=== PATIENT | male | born 1980 | race Caucasian/White ===

== ENCOUNTER 2017-08-09 13:09 | Inpatient (IN) | payer MEDICAID, SELFPAY ==
[2017-08-09 13:28] VITALS: BP 134/84; PULSE 102; RESP 18; TEMP 36.6; O2SAT 98; BMI 38.8
[2017-08-09 14:52] LABS: Basophils % 0.3 % (0.1-2.0); Eosinophils # 0.2 K/mm3 (0.0-0.4); Eosinophils % 2.3 % (0.1-12.0); Hematocrit 43.5 % (42.0-52.0); Hemoglobin 14.1 g/dL (14.1-18.0); Lymphocytes # 2.4 K/mm3 (0.7-4.5); Mean Corpuscular HGB Conc 32.4 g/dL (31.8-35.4); Mean Corpuscular Hemoglobin 28.3 pg (27.0-31.2); Mean Corpuscular Volume 87.3 fl (80-94); Mean Platelet Volume 8.7 fl (7.4-10.4); Monocytes # 0.6 K/mm3 (0.1-1.0); Monocytes % 6.2 % (1.7-9.3); Neutrophils # 7.1 K/mm3 (1.8-7.8); Neutrophils % 68.2 % (37.0-80.0); Platelet Count 238 K/mm3 (142-424); Red Blood Count 4.98 M/mm3 (4.60-6.20); White Blood Count 10.3 K/mm3 (4.8-10.8)
--- NOTE | 2017-08-09 15:37 | PC.NURSE ---
at 1347 Samuel Linton was notified that pt last use of heroin was around 15 hours prior to admission and states he will withdraw. [facility] stated that he told them it had been 2 weeks ago. Pt stated to me that it had been 2 weeks since he used a needle to administer the heroin but since this area of concern had developed he was snorting the heroin up his nose. Will continue to monitor
--- NOTE | 2017-08-09 15:51 | HMH.GSCON ---
*Admission Date: 08/09/17 *Chief complaint: abscess *History of present illness: 36yo male seen in consultation from Samuel Linton APRN and Dr. Luna for evaluation of a right AC fossa abscess. He admits to [facility] and developed a small right AC fossa abscess about a week ago . Over the last 24 hours, he states that the area has swollen up and got more tender . No fevers. No drainage. Review of Systems - Constitutional Denies anorexia - Eyes Denies change in vision - *Respiratory Denies cough - *Gastrointestinal Denies abdominal pain - *Musculoskeletal Denies joint pain - *Neurologic Denies confusion - Hematologic/Lymphatic Denies easy bleeding H History Medical History: Reports:: Anxiety, Depression Denies:: Diabetes Mellitus Type 1, Diabetes Mellitus Type 2 Other Surgeries: Yes: Other (gallbladder) Amputation: No Fractures: Yes - *Social History Educational Level: Completed Graduate School Smoking Status: Current every day smoker Tobacco Type: smokeless tobacco Alcohol Intake: never Substance Use Type: crack/cocaine, heroin Last Used Substance: hours (ago) Occupational Status: employed - Psychiatric History Expresses thoughts of harming self/others: None Suicide Plan Description: No Plan Pschychiatric History:: Reports:: Anxiety, Depression Meds Home Medications Medication Instructions Recorded Confirmed Type No Known Home Medications [No 08/09/17 08/09/17 History Known Home Medications] Allergies Allergy/AdvReac Type Severity Reaction Status Date / Time No Known Allergies Allergy Verified 08/09/17 11:47 Exam Vital signs and Labs for Last 24 Hours: Temp Pulse Resp BP Pulse Ox 97.8 F 102 H 18 134/84 98 08/09/17 13:28 08/09/17 13:28 08/09/17 13:28 08/09/17 13:28 08/09/17 13:28 Laboratory Results - last 24 hr 08/09/17 14:00: WBC 10.3, RBC 4.98, Hgb 14.1, Hct 43.5, MCV 87.3, MCH 28.3, MCHC 32.4, RDW 13.0, Plt Count 238, MPV 8.7, Neut % (Auto) 68.2, Lymph % (Auto) 23.0, [place] % (Auto) 6.2, Eos % (Auto) 2.3, Baso % (Auto) 0.3, Neut # (Auto) 7.1, Lymph # (Auto) 2.4, [place] # (Auto) 0.6, Eos # (Auto) 0.2, Baso # (Auto) 0.0 I & O for Last 24 hours: Intake & Output 08/07/17 08/08/17 08/09/17 08/10/17 11:59 11:59 11:59 11:59 Weight 278 lb - Constitutional no acute distress - *Routine Respiratory Exam Absent: respiratory distress - *Routine Cardiovascular Exam Present: RRR - *Routine Abdominal Exam Present: soft - *Routine Skin Exam Comments: Right AC fossa abscess with mild cellulitis - Routine Psychiatric Exam Present: normal affect Results - Labs 08/09/17 14:00 Laboratory Results - last 24 hr 08/09/17 14:00: WBC 10.3, RBC 4.98, Hgb 14.1, Hct 43.5, MCV 87.3, MCH 28.3, MCHC 32.4, RDW 13.0, Plt Count 238, MPV 8.7, Neut % (Auto) 68.2, Lymph % (Auto) 23.0, [place] % (Auto) 6.2, Eos % (Auto) 2.3, Baso % (Auto) 0.3, Neut # (Auto) 7.1, Lymph # (Auto) 2.4, [place] # (Auto) 0.6, Eos # (Auto) 0.2, Baso # (Auto) 0.0 Assessment and Plan (1) Abscess of right arm Current visit: Yes Status: Acute Category: Surgical Code(s): L02.413 - Cutaneous abscess of right upper limb Antibiotics as per primary service NPO p MN for OR tomorrow I&D right AC fossa abscess -- I have discussed the risks and benefits and he agrees to proceed
--- NOTE | 2017-08-09 15:54 | P.CONS_ITS ---
*Admission Date: 08/09/17 *Chief complaint: abscess *History of present illness: 36yo male seen in consultation from Samuel Linton APRN and Dr. Luna for evaluation of a right AC fossa abscess. He admits to [facility] and developed a small right AC fossa abscess about a week ago . Over the last 24 hours, he states that the area has swollen up and got more tender . No fevers. No drainage. Review of Systems - Constitutional Denies anorexia - Eyes Denies change in vision - *Respiratory Denies cough - *Gastrointestinal Denies abdominal pain - *Musculoskeletal Denies joint pain - *Neurologic Denies confusion - Hematologic/Lymphatic Denies easy bleeding H History Medical History: Reports:: Anxiety, Depression Denies:: Diabetes Mellitus Type 1, Diabetes Mellitus Type 2 Other Surgeries: Yes: Other (gallbladder) Amputation: No Fractures: Yes - *Social History Educational Level: Completed Graduate School Smoking Status: Current every day smoker Tobacco Type: smokeless tobacco Alcohol Intake: never Substance Use Type: crack/cocaine, heroin Last Used Substance: hours (ago) Occupational Status: employed - Psychiatric History Expresses thoughts of harming self/others: None Suicide Plan Description: No Plan Pschychiatric History:: Reports:: Anxiety, Depression Meds Home Medications Medication Instructions Recorded Confirmed Type No Known Home Medications [No 08/09/17 08/09/17 History Known Home Medications] Allergies Allergy/AdvReac Type Severity Reaction Status Date / Time No Known Allergies Allergy Verified 08/09/17 11:47 Exam Vital signs and Labs for Last 24 Hours: Temp Pulse Resp BP Pulse Ox 97.8 F 102 H 18 134/84 98 08/09/17 13:28 08/09/17 13:28 08/09/17 13:28 08/09/17 13:28 08/09/17 13:28 Laboratory Results - last 24 hr 08/09/17 14:00: WBC 10.3, RBC 4.98, Hgb 14.1, Hct 43.5, MCV 87.3, MCH 28.3, MCHC 32.4, RDW 13.0, Plt Count 238, MPV 8.7, Neut % (Auto) 68.2, Lymph % (Auto) 23.0, [place] % (Auto) 6.2, Eos % (Auto) 2.3, Baso % (Auto) 0.3, Neut # (Auto) 7.1 , Lymph # (Auto) 2.4, [place] # (Auto) 0.6, Eos # (Auto) 0.2, Baso # (Auto) 0.0 I & O for Last 24 hours: Intake & Output 08/07/17 08/08/17 08/09/17 08/10/17 11:59 11:59 11:59 11:59 Weight 278 lb - Constitutional no acute distress - *Routine Respiratory Exam Absent: respiratory distress - *Routine Cardiovascular Exam Present: RRR - *Routine Abdominal Exam Present: soft - *Routine Skin Exam Comments: Right AC fossa abscess with mild cellulitis - Routine Psychiatric Exam Present: normal affect Results - Labs 08/09/17 14:00 Laboratory Results - last 24 hr 08/09/17 14:00: WBC 10.3, RBC 4.98, Hgb 14.1, Hct 43.5, MCV 87.3, MCH 28.3, MCHC 32.4, RDW 13.0, Plt Count 238, MPV 8.7, Neut % (Auto) 68.2, Lymph % (Auto) 23.0, [place] % (Auto) 6.2, Eos % (Auto) 2.3, Baso % (Auto) 0.3, Neut # (Auto) 7.1 , Lymph # (Auto) 2.4, [place] # (Auto) 0.6, Eos # (Auto) 0.2, Baso # (Auto) 0.0 Assessment and Plan (1) Abscess of right arm Current visit: Yes Status: Acute Category: Surgical Code(s): L02.413 - Cutaneous abscess of right upper limb Antibiotics as per primary service NPO p MN for OR tomorrow I&D right AC bubba
[2017-08-09 16:01] VITALS: BP 143/73; PULSE 91; RESP 18; TEMP 37.2; O2SAT 99
--- NOTE | 2017-08-09 16:10 | P.CONPHA_ITS ---
- Pharmacy Consult Date: 08/09/17 Time: 16:08 Referring provider: DR. PRATER Reason for Consult:: VANCOMYCIN DOSING Allergies and ADEs:: Allergies Allergy/AdvReac Type Severity Reaction Status Date / Time No Known Allergies Allergy Verified 08/09/17 11:47 Home Medications:: Home Medications Medication Instructions Recorded Confirmed Type No Known Home Medications [No 08/09/17 08/09/17 History Known Home Medications] Height: 1.8 m Weight: 126.099 kg Laboratory Results:: Laboratory Results - last 24 hr 08/09/17 14:00: WBC 10.3, RBC 4.98, Hgb 14.1, Hct 43.5, MCV 87.3, MCH 28.3, MCHC 32.4, RDW 13.0, Plt Count 238, MPV 8.7, Neut % (Auto) 68.2, Lymph % (Auto) 23.0, [place] % (Auto) 6.2, Eos % (Auto) 2.3, Baso % (Auto) 0.3, Neut # (Auto) 7.1 , Lymph # (Auto) 2.4, [place] # (Auto) 0.6, Eos # (Auto) 0.2, Baso # (Auto) 0.0 Medical History: Reports:: Anxiety, Depression Denies:: Diabetes Mellitus Type 1, Diabetes Mellitus Type 2 Assessment and Plan (1) Abscess of right arm Current visit: Yes Status: Acute Category: Surgical Code(s): L02.413 - Cutaneous abscess of right upper limb - Assessment and plan all Dx Assessment and Plan for all problems:: BASED ON PATIENT'S FACTORS, RECOMMEND STARTING WITH VANCOMYCIN 2250 MG Q12H AT THIS TIME. PHARMACY WILL FOLLOW DAILY AND ADJUST APPROPRIATE. BAYRON MACHADO, COLIND
[2017-08-09 16:16] LABS: Alanine Aminotransferase 26 U/L (12-78); Albumin Level 3.7 gm/dL (3.4-5.0); Albumin/Globulin Ratio 1.1 (1.1-1.8); Alkaline Phosphatase 77 U/L (46-116); Anion Gap 10.2 mEq/L (5-15); Aspartate Amino Transferase 11 U/L (15-37); Bilirubin,Total 0.4 mg/dL (0.2-1.0); Blood Urea Nitrogen 22 mg/dL (7-18); Calcium 8.6 mg/dL (8.5-10.1); Carbon Dioxide 30 mmol/L (21.0-32.0); Chloride 103 mmol/L (98-107); Cholesterol 136 mg/dL (140-200); Creatinine Clearance Estimated 175 mL/min (0-300); Creatinine,Serum 1.06 mg/dL (0.70-1.30); Estimated Glomerular Filt Rate 80 ml/min (>60); GFR (African American) 97 ML/MIN (>60); Globulin 3.5 gm/dl (1.3-3.2); Glucose 129 mg/dL (74-106); HDL Cholesterol 45 mg/dL (27-67); LDL Cholesterol 71 mg/dL (0-130); Magnesium 2.1 mg/dL (1.4-2.2); Phosphorous 3.6 mg/dL (2.4-4.9); Potassium 4.2 mmoL/L (3.5-5.1); Sodium 139 mmol/L (136-145); Total Protein,Serum 7.2 gm/dL (6.4-8.2); Triglycerides 99 mg/dL (30-200); VLDL Cholesterol 20 mg/dL (0-40)
--- NOTE | 2017-08-09 17:17 | SW/DCPLANNER ---
Received referral regarding drug use for this patient. Went in and spoke with patient this evening. Patient stated that he was going to have an I&D in the am. Patient was very open to discussing his drug use and stated I know tomorrow is going to be bad and I will be going through withdrawals and be extremely sick . Patient also stated that he would rather detox elsewhere than here ( I assume at home to avoid having withdrawals). I encouraged patient to complete his stay here and a hospital is a safe place to be while trying to detox. Patient stated that his drug use first started when he was prescribed pain pills due to femur fracture. Once his prescription for pain pills stopped he became dependent on heroin. Patient stated that he does not typically shoot-up heroin, he generally snorts heroin. Patient stated that he uses heroin up to five times a day, everyday. Patient has been to [facility] in [place], [place] and he has been to [facility] in [place]. Patient stated that he has also tried [facility] in [place], and he would prefer to go this route once ready for discharge. I encouraged patient to be thinking about discharge plans this evening and where he would prefer to go and that I would be back in the morning to discuss discharge plans.Patient does not have any suicidal thoughts.
--- NOTE | 2017-08-09 18:38 | PC.NURSE ---
PT HAS TOLERATED WELL SINCE ARRIVAL, NO COMPLAINTS VOICED TO NURSE. PT IS IN BED, CALL LIGHT WITHIN REACH, WILL CONTINUE TO MONITOR.
[2017-08-09 20:00] VITALS: O2SAT 98
[2017-08-09 20:18] VITALS: BP 115/59; PULSE 94; RESP 18; TEMP 36.7; O2SAT 99
--- NOTE | 2017-08-09 22:07 | PC.NURSE ---
Pt admitted with right antecubital cellulitis, area with edema, erythema and hot to touch. Limb alert in place per policy.
--- NOTE | 2017-08-09 22:29 | PC.NURSE ---
Pt requested reserved pimento cheese sandwich and sprite - already ate his chips x 2.
--- NOTE | 2017-08-09 23:10 | PC.NURSE ---
08/09/17 @ 2015 - R/T pump malfunction as reported during shift report, pt's vancomycin did not get infused until 1999. Phoned YOUSIF Naranjo to report as next dose was scheduled for 2300. Consuelo gave instructions to send [facility] pharmacy a request to have timing changed for next dose at 08/10/17@0600 as needs to be 3every 12 hours. Pharmacy notification was sent and order changed in AUG.
[2017-08-10] VITALS (19 sets, daily range): BP systolic 105–163; BP diastolic 60–82; PULSE 70–105; RESP 16–18; TEMP 36.2–37; O2SAT 94–98
--- NOTE | 2017-08-10 05:15 | PC.NURSE ---
Pt NPO after midnight for upcoming I & D on right antecubital space r/t ivdu. No complaints of pain nor any s/s of withdrawal noted. Pt independent moving about in room/bathroom. IV infusing well with no s/s of infiltration or erythema. Nothing acute to report and pt remained safe and stable during my care.
--- NOTE | 2017-08-10 06:34 | PC.NURSE ---
In to discuss op consent. Went over report with pt initialing and signing. Will continue monitoring.
--- NOTE | 2017-08-10 07:03 | P.PN_ITS ---
Subjective Patient reports: other (The patient states he is concerned regarding withdrawal (I have informed his nurse and she will discuss this with his primary care provider)) Exam Vital signs and Labs for Last 24 Hours: Temp Pulse Resp BP Pulse Ox 97.4 F L 82 16 105/60 96 08/10/17 03:47 08/10/17 03:47 08/10/17 03:47 08/10/17 03:47 08/10/17 03:47 Laboratory Results - last 24 hr 08/09/17 14:00: WBC 10.3, RBC 4.98, Hgb 14.1, Hct 43.5, MCV 87.3, MCH 28.3, MCHC 32.4, RDW 13.0, Plt Count 238, MPV 8.7, Neut % (Auto) 68.2, Lymph % (Auto) 23.0, [place] % (Auto) 6.2, Eos % (Auto) 2.3, Baso % (Auto) 0.3, Neut # (Auto) 7.1 , Lymph # (Auto) 2.4, [place] # (Auto) 0.6, Eos # (Auto) 0.2, Baso # (Auto) 0.0 08/09/17 14:00: Sodium 139, Potassium 4.2, Chloride 103, Carbon Dioxide 30, Anion Gap 10.2, BUN 22 H, Creatinine 1.06, Estimated Creat Clear 175, Estimated GFR 80, Est GFR ( Amer) 97, Glucose 129 H, Calcium 8.6, Phosphorus 3.6, Magnesium 2.1, Total Bilirubin 0.4, AST 11 L, ALT 26, Alkaline Phosphatase 77, Total Protein 7.2, Albumin 3.7, Globulin 3.5 H, Albumin/Globulin Ratio 1.1, Triglycerides 99, Cholesterol 136 L, LDL Cholesterol 71, VLDL Cholesterol 20, HDL Cholesterol 45, Cholesterol/HDL Ratio 3.0 I & O for Last 24 hours: Intake & Output 08/07/17 08/08/17 08/09/17 08/10/17 11:59 11:59 11:59 11:59 Intake Total 1708 / 1708 Output Total 400 / 400 Balance 1308 / 1308 Weight 278 lb - Constitutional no acute distress - *Routine Respiratory Exam Absent: respiratory distress - *Routine Cardiovascular Exam Present: RRR - *Routine Extremities Exam Comments: RUE abscess stable Progress Note: A&P (1) Abscess of right arm Status: Acute Assessment and plan: I&D abscess later today as scheduled. Current Visit: Yes
--- NOTE | 2017-08-10 07:56 | HMH.PHAVTE ---
[facility] Pharmacy VTE Monitoring - Patient Demographics Admission date: 08/09/17 Report Date: 08/10/17 Time: 07:56 Allergies/Adverse Reactions: Patient Allergies No Known Allergies Allergy (Verified 08/09/17 11:47) Height: 1.8 m Weight: 126.099 kg Patient Problems: Current Active Problems Abscess of right arm (Acute) - VTE Risk Labs: VTE Related Lab Results Hgb 14.1 g/dL (14.1-18.0) 08/09/17 14:00 Hct 43.5 % (42.0-52.0) 08/09/17 14:00 Plt Count 238 K/mm3 (142-424) 08/09/17 14:00 BUN 22 mg/dL (7-18) H 08/09/17 14:00 Creatinine 1.06 mg/dL (0.70-1.30) 08/09/17 14:00 Estimated Creat Clear 175 mL/min (0-300) 08/09/17 14:00 VTE Score: 2 VTE Risk Level: Very Low Risk - Prophylaxis VTE Prophylaxis Ordered?: Yes Types of VTE Prophylaxis: TEDS Knee High Location of Applied Device: Bilateral Lower Extremeties - VTE Diagnosis Confirmed Treatment or plan recommended: Continue Current Treatment
--- NOTE | 2017-08-10 09:19 | HMH.HP ---
*Admission Date: 08/09/17 *Chief complaint: abcess *History of present illness: 36yo male seen in consultation from Samuel Linton APRN and Dr. Luna for evaluation of a right AC fossa abscess. He admits to [facility] and developed a small right AC fossa abscess about a week ago . Over the last 24 hours, he states that the area has swollen up and got more tender . No fevers. No drainage. [facility] History I have reviewed the patient's past medical history: Yes Medical History: Reports:: Anxiety, Depression Denies:: Diabetes Mellitus Type 1, Diabetes Mellitus Type 2 Other Surgeries: Yes: Other (gallbladder) Amputation: No Fractures: Yes - *Social History Educational Level: Completed Graduate School Smoking Status: Current every day smoker Tobacco Type: smokeless tobacco Alcohol Intake: never Substance Use Type: crack/cocaine, heroin Last Used Substance: hours (ago) Occupational Status: employed - Psychiatric History Expresses thoughts of harming self/others: None Suicide Plan Description: No Plan Pschychiatric History:: Reports:: Anxiety, Depression Review of Systems - Constitutional Reports chills, Reports fatigue - Eyes Denies double vision - ENT Denies neck pain - *Cardiovascular Denies chest pain with activity - *Respiratory Denies cough, Denies shortness of breath - *Gastrointestinal Denies bright, red blood in stools - *Genitourinary Denies painful urination - *Musculoskeletal Denies decreased muscle mass - Integumentary/Breasts Denies change in hair - *Neurologic Denies confusion - Psychiatric Denies panic attacks - Endocrine Denies flushing - Hematologic/Lymphatic Denies enlarged lymph nodes - Allergic/Immunologic Denies lip swelling Meds Home Medications Medication Instructions Recorded Confirmed Type No Known Home Medications [No 08/09/17 08/09/17 History Known Home Medications] Allergies Allergy/AdvReac Type Severity Reaction Status Date / Time No Known Allergies Allergy Verified 08/09/17 11:47 Exam Vital signs and Labs for Last 24 Hours: Temp Pulse Resp BP Pulse Ox 98.5 F 75 18 118/61 98 08/10/17 07:58 08/10/17 07:58 08/10/17 07:58 08/10/17 07:58 08/10/17 07:58 Laboratory Results - last 24 hr 08/09/17 14:00: WBC 10.3, RBC 4.98, Hgb 14.1, Hct 43.5, MCV 87.3, MCH 28.3, MCHC 32.4, RDW 13.0, Plt Count 238, MPV 8.7, Neut % (Auto) 68.2, Lymph % (Auto) 23.0, [place] % (Auto) 6.2, Eos % (Auto) 2.3, Baso % (Auto) 0.3, Neut # (Auto) 7.1, Lymph # (Auto) 2.4, [place] # (Auto) 0.6, Eos # (Auto) 0.2, Baso # (Auto) 0.0 08/09/17 14:00: Sodium 139, Potassium 4.2, Chloride 103, Carbon Dioxide 30, Anion Gap 10.2, BUN 22 H, Creatinine 1.06, Estimated Creat Clear 175, Estimated GFR 80, Est GFR ( Amer) 97, Glucose 129 H, Calcium 8.6, Phosphorus 3.6, Magnesium 2.1, Total Bilirubin 0.4, AST 11 L, ALT 26, Alkaline Phosphatase 77, Total Protein 7.2, Albumin 3.7, Globulin 3.5 H, Albumin/Globulin Ratio 1.1, Triglycerides 99, Cholesterol 136 L, LDL Cholesterol 71, VLDL Cholesterol 20, HDL Cholesterol 45, Cholesterol/HDL Ratio 3.0 I & O for Last 24 hours: Intake & Output 08/07/17 08/08/17 08/09/17 08/10/17 11:59 11:59 11:59 11:59 Intake Total 1708 / 1708 Output Total 400 / 400 Balance 1308 / 1308 Weight 278 lb - Constitutional no acute distress - *Routine HEENT Exam Head: Present: normocephalic Eye: Present: PERRL ENT: Present: mucous membranes moist - *Routine Neck Exam Present: supple, full ROM - *Routine Respiratory Exam Present: CTA bilaterally - *Routine Cardiovascular Exam Present: murmur - *Routine Abdominal Exam Present: soft, normoactive bowel sounds - *Routine Extremities Exam Present: full ROM - *Routine Skin Exam Present: erythema - *Routine Neurological Exam Present: alert, oriented X3, CN II-XII intact - Routine Psychiatric Exam Present: normal affect, normal thought process - Detaile
--- NOTE | 2017-08-10 09:22 | P.HP_ITS ---
*Admission Date: 08/09/17 *Chief complaint: abcess *History of present illness: 36yo male seen in consultation from Samuel Linton APRN and Dr. Luna for evaluation of a right AC fossa abscess. He admits to [facility] and developed a small right AC fossa abscess about a week ago . Over the last 24 hours, he states that the area has swollen up and got more tender . No fevers. No drainage. [facility] History I have reviewed the patient's past medical history: Yes Medical History: Reports:: Anxiety, Depression Denies:: Diabetes Mellitus Type 1, Diabetes Mellitus Type 2 Other Surgeries: Yes: Other (gallbladder) Amputation: No Fractures: Yes - *Social History Educational Level: Completed Graduate School Smoking Status: Current every day smoker Tobacco Type: smokeless tobacco Alcohol Intake: never Substance Use Type: crack/cocaine, heroin Last Used Substance: hours (ago) Occupational Status: employed - Psychiatric History Expresses thoughts of harming self/others: None Suicide Plan Description: No Plan Pschychiatric History:: Reports:: Anxiety, Depression Review of Systems - Constitutional Reports chills, Reports fatigue - Eyes Denies double vision - ENT Denies neck pain - *Cardiovascular Denies chest pain with activity - *Respiratory Denies cough, Denies shortness of breath - *Gastrointestinal Denies bright, red blood in stools - *Genitourinary Denies painful urination - *Musculoskeletal Denies decreased muscle mass - Integumentary/Breasts Denies change in hair - *Neurologic Denies confusion - Psychiatric Denies panic attacks - Endocrine Denies flushing - Hematologic/Lymphatic Denies enlarged lymph nodes - Allergic/Immunologic Denies lip swelling Meds Home Medications Medication Instructions Recorded Confirmed Type No Known Home Medications [No 08/09/17 08/09/17 History Known Home Medications] Allergies Allergy/AdvReac Type Severity Reaction Status Date / Time No Known Allergies Allergy Verified 08/09/17 11:47 Exam Vital signs and Labs for Last 24 Hours: Temp Pulse Resp BP Pulse Ox 98.5 F 75 18 118/61 98 08/10/17 07:58 08/10/17 07:58 08/10/17 07:58 08/10/17 07:58 08/10/17 07:58 Laboratory Results - last 24 hr 08/09/17 14:00: WBC 10.3, RBC 4.98, Hgb 14.1, Hct 43.5, MCV 87.3, MCH 28.3, MCHC 32.4, RDW 13.0, Plt Count 238, MPV 8.7, Neut % (Auto) 68.2, Lymph % (Auto) 23.0, [place] % (Auto) 6.2, Eos % (Auto) 2.3, Baso % (Auto) 0.3, Neut # (Auto) 7.1 , Lymph # (Auto) 2.4, [place] # (Auto) 0.6, Eos # (Auto) 0.2, Baso # (Auto) 0.0 08/09/17 14:00: Sodium 139, Potassium 4.2, Chloride 103, Carbon Dioxide 30, Anion Gap 10.2, BUN 22 H, Creatinine 1.06, Estimated Creat Clear 175, Estimated GFR 80, Est GFR ( Amer) 97, Glucose 129 H, Calcium 8.6, Phosphorus 3.6, Magnesium 2.1, Total Bilirubin 0.4, AST 11 L, ALT 26, Alkaline Phosphatase 77, Total Protein 7.2, Albumin 3.7, Globulin 3.5 H, Albumin/Globulin Ratio 1.1, Triglycerides 99, Cholesterol 136 L, LDL Cholesterol 71, VLDL Cholesterol 20, HDL Cholesterol 45, Cholesterol/HDL Ratio 3.0 I & O for Last 24 hours: Intake & Output 08/07/17 08/08/17 08/09/17 08/10/17 11:59 11:59 11:59 11:59 Intake Total 1708 / 1708 Output Total 400 / 400 Balance 1308 / 1308 Weight 278 lb
--- NOTE | 2017-08-10 09:30 | CA_ITS ---
PROCEDURE: 2-D M-mode and color Doppler study INDICATIONS FOR THE TEST: Chest pain COPD Heart MurmurX Tobacco Smoking Palpitations Fatigue Syncope Edema Hypertension Diabetes Mellitus Rheumatic Fever SOB FINLEY ObesityXHyperlipidemia Family History HD Additional History IV DRUG USER,CHECK VALVES PATIENT INFORMATION HEIGHT: 71 WEIGHT:278 GENDER: Male B/P:118/61 2-D/M-MODE INTERPRETATION: 2-D MEASUREMENTS OBSERVED VALUES IN CMS Right Ventricular Dimension (RVDd) 2.4 Interventricular Septum (Thickness)(IVsd) .9 Left Ventricular Internal Dimensions(LVIDd) 5.6 Left Ventricular Posterior Wall (Thickness)(LVPWd) .9 Aortic Root 3.4 Aortic Cusp Separation 2.4 Left Atrial Dimensions (LAD) 3.0 2D 1. Technically difficult study because of the patient's factor and poor acoustic windows 2. The left atrium is normal size, left ventricle is normal size, there is no concentric left ventricular hypertrophy, visually estimated ejection fraction 55% with no obvious regional wall motion abnormality. 3. The right atrium and right ventricle are relatively normal size and function. 4. The aortic, mitral and tricuspid valve are grossly normal. 5. The pulmonic valve is poorly visualized. 6. No significant pericardial effusion noted. DOPPLER INTERROGATION: Doppler interrogation of the aortic, mitral and tricuspid valve reveals presence of trace mitral and tricuspid regurgitation of no hemodynamic significance, diastolic parameters are within normal range. CONCLUSION: 1. Technically difficult study because of the patient's factor and poor acoustic windows 2. Normal left ventricular size, preserved left ventricular systolic function, visually estimated ejection fraction 55% with no obvious regional wall motion abnormality, diastolic parameters are within normal range. 3. Trace mitral and tricuspid regurgitation 4. No significant pericardial effusion noted.
--- NOTE | 2017-08-10 12:25 | HMH.ANESCL ---
[facility] Anesthesia Checklist - Structural Data Admitted From: Home Planned Operative Procedure/s: i/d r arm abcess Consent for Planned Operative Procedure(s) Verified: Yes Verified Documents: Surgical Consent - NPO Status Verified Time NPO: 18:00 - Airway Assessment C-Spine Mobility Assessed: Yes TMJ Mobility Assessed: Yes Dentition: Good Dentition - Neurological Assessment Level of Consciousness: Awake, Alert - Anesthesia Plan Anesthesia Risk discussed: Yes Anesthesia Plan: Verified ASA Class: II Anesthesia Type: General [facility] Anesthesia HX Medical History: Reports:: Anxiety, Depression Denies:: Diabetes Mellitus Type 1, Diabetes Mellitus Type 2 Other Surgeries: Yes: Other (gallbladder) Amputation: No Fractures: Yes Comment: femur, lap saul
--- NOTE | 2017-08-10 13:21 | HMH.OPNOTE ---
Date of procedure: 08/10/17 Pre-op Diagnosis:: Right antecubital fossa abscess Post-op diagnosis:: same Procedure performed:: Incision and drainage of right antecubital fossa abscess Surgeon:: Eliazar Low MD RULING TECHNICIAN:: Raffy Rangel Anesthesia: LMA Estimated blood loss (mL): 1 Operative findings:: Indurated tissue and fluid within subcutaneous pocket Operative note:: After informed consent was obtained, the patient was taken to the operating room and maintained in the supine position. General anesthesia was induced and his right arm was prepped and draped in a sterile fashion. An elliptical incision was made over the central portion of the lesion. A pocket of purulent fluid was encountered and obtained for Gram stain/culture. The entire pocket was carefully opened and evacuated of contents. Moistened Kerlix was placed in the wound and then infiltrated with 1% lidocaine. Dressings were applied and the patient was transferred to recovery in stable condition Condition: stable Disposition: PACU Specimens:: Fluid for Gram stain and culture Complications:: No immediate
--- NOTE | 2017-08-10 13:24 | P.OP_ITS ---
Date of procedure: 08/10/17 Pre-op Diagnosis:: Right antecubital fossa abscess Post-op diagnosis:: same Procedure performed:: Incision and drainage of right antecubital fossa abscess Surgeon:: Eliazar Low MD MARBLEIZER:: Raffy Rangel Anesthesia: LMA Estimated blood loss (mL): 1 Operative findings:: Indurated tissue and fluid within subcutaneous pocket Operative note:: After informed consent was obtained, the patient was taken to the operating room and maintained in the supine position. General anesthesia was induced and his right arm was prepped and draped in a sterile fashion. An elliptical incision was made over the central portion of the lesion. A pocket of purulent fluid was encountered and obtained for Gram stain/culture. The entire pocket was carefully opened and evacuated of contents. Moistened Kerlix was placed in the wound and then infiltrated with 1% lidocaine. Dressings were applied and the patient was transferred to recovery in stable condition Condition: stable Disposition: PACU Specimens:: Fluid for Gram stain and culture Complications:: No immediate
--- NOTE | 2017-08-10 13:26 | P.PN_ITS ---
[facility] Anesthesia Record Part I Intake, IV Amount: 300 Estimated blood loss (mL): 5 Urine output (mL): 0 Blood Pressure: 135/75 SaO2: 96 Pulse Rate: 85 Respiratory Rate: 16 Temperature: 97.2 F Patient is:: Drowsy, Stable Stable to PACU at:: 13:25
--- NOTE | 2017-08-10 13:26 | HMH.ANESII ---
[facility] Anesthesia Record Part II Discharge Time: 13:55 Destination: 2nd floor PACU nurse assessment reviewed?: Yes Patient Condition:: Good Anesthesia Complications:: None
[2017-08-11 04:00] VITALS: BP 164/65; PULSE 88; RESP 18; TEMP 37.4; O2SAT 97
[2017-08-11 05:57] LABS: Creatinine Clearance Estimated 186 mL/min (0-300); Estimated Glomerular Filt Rate 86 ml/min (>60); GFR (African American) 103 ML/MIN (>60)
[2017-08-11 06:04] LABS: Vancomycin,Trough 10.1 mcg/ml (10.0-20.0)
--- NOTE | 2017-08-11 06:48 | HMH.GSPN ---
Subjective Patient reports: no new complaints (wants to go home) Exam Vital signs and Labs for Last 24 Hours: Temp Pulse Resp BP Pulse Ox 99.4 F 88 18 164/65 97 08/11/17 04:00 08/11/17 04:00 08/11/17 04:00 08/11/17 04:00 08/11/17 04:00 Laboratory Results - last 24 hr 08/11/17 05:30: Vancomycin Trough 10.1 08/11/17 05:30: Creatinine 1.00, Estimated Creat Clear 186, Estimated GFR 86, Est GFR ( Amer) 103 I & O for Last 24 hours: Intake & Output 08/08/17 08/09/17 08/10/17 08/11/17 11:59 11:59 11:59 11:59 Intake Total 1708 / 1708 400 / 400 Output Total 400 / 400 0 / 0 Balance 1308 / 1308 400 / 400 Weight 278 lb Microbiology Reports for the Last 24 Hours: Microbiology 08/10/17 13:10 Arm,Right Gram Stain - Final - Constitutional no acute distress - *Routine Respiratory Exam Absent: respiratory distress - *Routine Cardiovascular Exam Present: RRR - *Routine Skin Exam Comments: RUE dressing intact. No spreading cellulitis. Progress Note: A&P (1) Abscess of right arm Status: Acute Assessment and plan: Overall, doing well s/p I&D: Dressing changes Close outpatient follow-up A short course of antibiotics is reasonable, but he is unlikely to need extended treatment (cultures pending) Current Visit: Yes
--- NOTE | 2017-08-11 07:08 | PC.NURSE ---
Pt with intermittent sleep, pain meds given per emar. Pt voiced he is anxious to see his incision, encouraged to not unwrap dressing. No s/s of withdrawal noted and pt remained safe this shift.
[2017-08-11 08:00] VITALS: BP 123/71; PULSE 103; RESP 16; TEMP 37.1; O2SAT 96
--- NOTE | 2017-08-11 08:48 | SW/DCPLANNER ---
Patient has stated numerous times that he does not need any resources at this time due to having an appointment this afternoon [facility], in which patient is adamant about attending. I will assist with any needs/new orders that may occur before discharge. Patient stated that no resources are necessary at this time.
--- NOTE | 2017-08-11 09:38 | P.DS_ITS ---
General - General Admission date: 08/09/17 Discharge date: 08/11/17 HPI HPI: 36yo male seen in consultation from Samuel Linton APRN and Dr. Luna for evaluation of a right AC fossa abscess. He admits to [facility] and developed a small right AC fossa abscess about a week ago . Over the last 24 hours, he states that the area has swollen up and got more tender . No fevers. No drainage. Objective Vital signs: Temp Pulse Resp BP Pulse Ox 98.7 F 103 H 16 123/71 96 08/11/17 08:00 08/11/17 08:00 08/11/17 08:00 08/11/17 08:00 08/11/17 08:00 no acute distress - *Routine HEENT Exam Head: Present: normocephalic Eye: Present: PERRL ENT: Present: mucous membranes moist - *Routine Neck Exam Present: supple, full ROM - *Routine Respiratory Exam Present: CTA bilaterally - *Routine Cardiovascular Exam Present: RRR - *Routine Abdominal Exam Present: soft, normoactive bowel sounds - *Routine Extremities Exam Present: full ROM - *Routine Skin Exam Present: wounds - *Routine Neurological Exam Present: alert, oriented X3, CN II-XII intact - Routine Psychiatric Exam Present: normal affect, normal thought process - Detailed Skin Exam arm Body image: 1 - dressing in place, Hospital Course Hospital Course: surgery consult for I&D see note Cultures pending Today's patient states he feels much better and has to go home because he has an appointment [facility] at 12:00. Patient states he can do his own wound care at home. Will have nursing demonstrate dressing changes. Patient will follow up with Dr. Sorenson the first part of the week ending in the office next week. Results Labs on day of discharge: Labs from last 24 hours 08/11/17 08/11/17 05:30 05:30 Creatinine 1.00 Estimated Creat Clear 186 Estimated GFR 86 Est GFR ( Amer) 103 Vancomycin Trough 10.1 Preliminary micro results at discharge 08/10/17 13:10 Abscess Culture - Preliminary Arm,Right Gram Positive Cocci DS: Diagnosis - Discharge Diagnosis (1) Abscess of right arm Status: Acute Discharge Plan - Patient Discharge Instructions ACTIVITY: Continue current activity DIET: continue same diet - Follow up Plan Follow up with: Eliazar Low MD [Staff Physician] - 1 week Milton Luna MD [Primary Care Provider] - 1 week Disposition: Home, Self-Care Prescriptions/Medication Reconciliation: New cephALEXin [Keflex 500mg Cap] 500 mg PO BID 7 Days #14 cap Sulfamethoxazole/Trimethoprim [Bactrim DS tablet] 1 each PO BID 10 Days #14 tab
--- NOTE | 2017-08-11 09:52 | HMH.PHACONS ---
- Pharmacy Consult Date: 08/11/17 Time: 09:52 Referring provider: DR. PRATER Reason for Consult:: VANCOMYCIN TROUGH LEVEL Allergies and ADEs:: Allergies Allergy/AdvReac Type Severity Reaction Status Date / Time No Known Allergies Allergy Verified 08/09/17 11:47 Home Medications:: Home Medications Medication Instructions Recorded Confirmed Type No Known Home Medications 09/27/17 09/27/17 History Height: 1.8 m Weight: 126.099 kg Laboratory Results:: Laboratory Results - last 24 hr 08/11/17 05:30: Vancomycin Trough 10.1 08/11/17 05:30: Creatinine 1.00, Estimated Creat Clear 186, Estimated GFR 86, Est GFR ( Amer) 103 Medical History: Reports:: Anxiety, Depression Denies:: Diabetes Mellitus Type 1, Diabetes Mellitus Type 2 Assessment and Plan (1) Abscess of right arm Status: Acute Category: Surgical Code(s): L02.413 - Cutaneous abscess of right upper limb - Assessment and plan all Dx Assessment and Plan for all problems:: BASED ON VANCOMYCIN TROUGH LEVEL AND PATIENT FACTORS, RECOMMEND CONTINUING VANCOMYCIN 2250 MG IV Q12H. PATIENT IS BEING DISCHARGED TODAY ON BACTRIM AND KEFLEX.
== END 2017-08-11 11:00 | disposition home or self-care (01) | DRG 603 ==
PROVIDERS: Surgery; Admitting Provider Emergency Medicine; Family Provider Emergency Medicine; PCP Emergency Medicine; Referring Provider Nurse Practitioner Family; Visit Provider Emergency Medicine
PROC: 0H9BXZZ Drainage of Right Upper Arm Skin, External Approach (ICD-10-PCS; principal; 2017-08-10 13:00)
DX: L02.413 Cutaneous abscess of right upper limb (principal); B95.61 Methicillin susceptible Staphylococcus aureus infection as the cause of diseases classified elsewhere
CPT/HCPCS: 10061; 36415; 80053; 80061; 80202; 82565; 83735; 84100; 85025; 87070; 87077; 87186; 87205; 93306; J2405; J3370

== ENCOUNTER 2017-09-27 23:11 | Emergency (ER) | payer MEDICAID, SELFPAY ==
[2017-09-27 23:16] VITALS: BP 165/93; PULSE 98; RESP 20; TEMP 36.6; O2SAT 94; BMI 39.0
--- NOTE | 2017-09-27 23:48 | HMH.EDMCLR ---
ED Disposition Clinical Impression: Medical clearance for incarceration Disposition: Home, Self-Care Condition on Discharge: Good - Critical Care Critical Care Time: No Attestation: On , the high probability of a clinically significant, sudden or life threatening deterioration of the following system(s) required my full and direct attention, intervention and personal management. The time I documented below is in addition to time spent performing reported procedures but includes the following listed in this critical care notation. Medical Decision Making - Medical Records Medical records reviewed: Yes: I reviewed the patient's medical records. - Noé Inquiry Pt receiving controlled substance: No Vital Signs: 09/27/17 23:16 Temperature 98 F Temperature Source Oral Pulse Rate [Right Radial] 98 H Respiratory Rate 20 Blood Pressure [Right Arm] 165/93 Blood Pressure Mean [Right Arm] 117 02 Sat by Pulse Oximetry 94 L Medical Clearance HPI - General Chief complaint: Medical Clearance Stated complaint: Medical Clearance Time Seen by Provider: 09/27/17 23:48 Mode of Arrival: Ambulatory Source of Information: Patient, Medical Record Limitations: No Limitations Description of Symptoms (Recalled from ER Triage Doc. by RN): pt here for medical clearance in police custody. pt states he shot up heroin approx 1.5 hours ago. pt denies any signs symptoms, or complaints - History of Present Illness HPI Narrative: no c/o MD complaint: medical clearance requested Onset (ago): hour(s) Reason for Medical Clearance: intoxication Place: home Alleged Intoxication: Yes Home medications: Home Medications Medication Instructions Recorded Confirmed No Known Home Medications [No 09/27/17 09/27/17 Known Home Medications] Allergies/Adverse reactions: Allergies Allergy/AdvReac Type Severity Reaction Status Date / Time No Known Allergies Allergy Verified 08/09/17 11:47 [facility] History I have reviewed the patient's past medical history: Yes Medical History: Reports:: Anxiety, Depression Denies:: Cancer, Diabetes Mellitus Type 1, Diabetes Mellitus Type 2, MRSA Other Surgeries: Yes: Other (gallbladder) Amputation: No Fractures: Yes Comment: femur, lap saul - Social History Smoking Status: Never smoker Tobacco Type: smokeless tobacco Alcohol Intake: never Substance Use Type: heroin Occupational Status: employed - Psychiatric History Expresses thoughts of harming self/others: None Suicide Plan Description: No Plan Pschychiatric History:: Reports:: Anxiety, Depression ROS Obtained: Yes All systems reviewed & no additional complaints - Constitutional Constitutional: Denies fever(s) - Eyes Eyes: Denies change in vision - Cardiovascular Cardiovascular: Denies chest pain at rest - Neurologic Neurologic: Denies seizure-like activity Physical Exam - General General appearance: in no apparent distress - Head Head exam: normocephalic - Eye Eye exam: Present: PERRL, EOMI - ENT ENT exam: Present: mucous membranes moist - Neck Neck exam: Present: trachea midline - Respiratory Respiratory exam: Absent: respiratory distress - Cardiovascular Cardiovascular exam: Present: regular rate - Extremities Exam Extremities exam: Present: full ROM - Neurological Exam Neurological exam: Present: alert, oriented X3, CN II-XII intact - Skin Skin exam: Absent: rash
[2017-09-27 23:55] VITALS: BP 156/70; PULSE 78; RESP 20; TEMP 36.6; O2SAT 99
== END 2017-09-28 00:06 | disposition home or self-care (01) ==
LOC: ER 09-28
PROVIDERS: Emergency Provider Emergency Medicine; Family Provider Emergency Medicine; PCP Emergency Medicine
DX: F11.10 Opioid abuse, uncomplicated (principal); F41.8 Other specified anxiety disorders; Z90.49 Acquired absence of other specified parts of digestive tract
CPT/HCPCS: 99282